=== PATIENT | female | born 1965 | race Caucasian/White ===

== ENCOUNTER 2017-05-20 13:45 | Emergency (ER) | payer MEDICAID ==
[~2017-05-20] VITALS: Ht 152.4 cm; Wt 68.0 kg
[2017-05-20 14:08] VITALS: BP 124/73
--- NOTE | 2017-05-20 15:26 | NUR ---
52F BIB SELF C/O RT EAR PAIN, ACHING, RADIATES TO RT FACE, 5/10 X 3 WEEKS; NO BLEEDING OR DRAINAGE NOTED TO SITE AT THIS TIME; PT DENIES TRAUMA OR INJURY, OR HEARING LOSS AT THIS TIME; PT AA&OX4, PERRLA, BL LUNG SOUNDS CLEAR, RR EVEN/UNLABORED, SKIN IS WARM/DRY/INTACT AT THIS TIME; PT STATES NO N/V/D AT THIS TIME; PT RESTING IN BED W/ HOB ELEVATED AND IN LOWEST POSITION; POSITIONED FOR COMFORT; ER MD MADE AWARE OF STATUS. WILL CONTINUE TO MONITOR.
--- NOTE | 2017-05-20 16:04 | NUR ---
BUSTER FERRARA EVALUATING PT AT BEDSIDE.
[2017-05-20 16:07] VITALS: BP 137/76
--- NOTE | 2017-05-20 16:07 | NUR ---
Patient discharged with v/s stable. Written and verbal after care instructions given and explained. Patient alert, oriented and verbalized understanding of instructions. Ambulatory with to car. All questions addressed prior to discharge. ID band removed. Patient advised to follow up with PMD. Rx of MOTRIN 600MG TAB, AMOXICILLIN 500MG CAP & CORTISPORIN OTIC SUSPENSION given. Patient educated on indication of medication including possible reaction and side effects. Opportunity to ask questions provided and answered.
== END 2017-05-20 15:26 | disposition home or self-care (01) ==
LOC: MED 13:45
DX: H66.91 Otitis media, unspecified, right ear (principal)
CPT/HCPCS: 81002; 81025; 99283

== ENCOUNTER 2018-10-19 09:34 | Emergency (ER) | payer MEDICAID ==
[~2018-10-19] VITALS: Ht 152.4 cm; Wt 66.7 kg
[2018-10-19 09:40] VITALS: BP 127/77
[2018-10-19 10:55] VITALS: BP 120/76
[2018-10-19] MEDS: LIDOCAINE 1% 500 MG/50 ML VIAL INJ SCH (10:55)
== END 2018-10-19 10:55 | disposition home or self-care (01) ==
LOC: MED 09:34
DX: L73.9 Follicular disorder, unspecified (principal)
CPT/HCPCS: 10160; 99283; J2001